=== PATIENT | male | born 1955 | race African-American/Black ===

== ENCOUNTER 2023-08-20 08:20 | Day surgery (SDC) | payer OTHER ==
[2023-08-20] MEDS ORDERED: Ringers Lactate 1,000 ML IV ONE (08:47)
[2023-08-20] MEDS ORDERED: METHYLPREDNISOLONE 125 MG INJ ONE ×2 (09:07→10:43)
[2023-08-20] MEDS ORDERED: FENTANYL CITR 100 MCG/2 ML ONE (10:24)
[2023-08-20] MEDS ORDERED: ROCURONIUM 50 MG/5 ML VIAL IV ONE (10:24)
[2023-08-20] MEDS ORDERED: MIDAZOLAM HCL 2 MG/2 ML INJ ONE (10:24)
[2023-08-20] MEDS ORDERED: propofoL 200 MG/20 ML VIAL IV ONE (10:24)
[2023-08-20] MEDS ORDERED: dexAMETHasone 10 MG/ML VIAL ONE (10:24)
[2023-08-20] MEDS ORDERED: LIDOCAINE 2% MPF 5 ML VIAL ONE (10:25)
[2023-08-20] MEDS ORDERED: LIDOCAINE HCL/EPINEPHRINE 20 ML MDV ONE (10:35)
[2023-08-20] MEDS ORDERED: OXYMETAZOLINE HCL 0.05% 15ML NAS ONE (10:35)
[2023-08-20] MEDS ORDERED: EPINEPHRINE/PF 1 MG/ML AMP ONE (10:35)
[2023-08-20] MEDS ORDERED: NEOSTIGMINE 1 MG/ML -10 ML VIAL ONE (11:13)
[2023-08-20] MEDS ORDERED: GLYCOPYRROLATE 0.2 MG/ML SYR ONE (11:13)
[2023-08-20 11:17] VITALS: O2SAT 100
--- NOTE | 2023-08-20 11:24 | P.OP ---
Retail Commission Sales Associate: NONE,NONE Preoperative diagnosis: Neoplasm uncertain behavior, larynx. Dysphonia. Tobacco use. Postoperative diagnosis: Same. 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 An exam under anesthesia is performed. The patient has dental avulsions with retained roots of the maxilla with grossly carious and loose teeth of the mandible. The lips, floor of mouth, oral tongue and hard palate are unremarkable. The soft palate and posterior pharyngeal wall is unremarkable on inspection. There are no mucosal lesions in the retromolar trigone. Deep palpation of the base of tongue and tonsillar fossa's revealed no palpable masses or areas of friability. The upper gingiva are protected with a gauze sponge. The [facility] laryngoscope is fitted with a 15 degree telescope and a direct laryngoscopy is performed. Direct visualization of the tonsillar fossa, posterior pharyngeal wall, base of tongue, epiglottis and right and left piriform sinuses all reveal no mucosal lesion under magnification with the telescope. The laryngoscope was then positioned for visualization of the glottis. The false vocal folds appear unremarkable. The left true vocal fold appears smooth with no significant lesions. The right vocal fold demonstrated a central area of moderate ulceration with moderate exophytic appearing tumor around the ulcer and extending anteriorly. There was no obvious involvement of the left anterior vocal fold. There is no obvious involvement of the subglottis. A cup forceps is used to obtain a biopsy from the ulcerated area of the right vocal fold as well as the more bulky exophytic area anteriorly. The specimens are sent to pathology for permanent section only. An epinephrine soaked pledget is applied to the biopsy site for several minutes to allow for vasoconstriction and aid in hemostasis. After removal, the area appears hemostatic with no clinical concern for significant airway obstruction. The laryngoscope was carefully removed and the patient was returned to care of anesthesia for awakening extubation in the operating room which proceeded without difficulty. Due to the clinical findings, I spoke with the patient's loved one who indicated desire to complete treatment locally as there is an anticipated need for radiation therapy pending staging and receipt of biopsy results. We will plan to refer to radiation oncology and instructed the patient to proceed with dental evaluation and extractions
[2023-08-20] MEDS ORDERED: Phenylephrine HCl 10 MG/ML 1 ML VIAL ONE ×2 (11:25→11:26)
[2023-08-20 11:29] VITALS: BP 136/77; TEMP 97.1
--- NOTE | 2023-08-21 14:14 | EKG ---
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
== END 2023-08-20 12:15 | disposition home or self-care (01) ==
LOC: OR 08:20
PROVIDERS: ATTEND Otolaryngology
PROC: 0CBT8ZX Excision of Right Vocal Cord, Via Natural or Artificial Opening Endoscopic, Diagnostic (ICD-10-PCS; principal; 2023-08-20 09:30)
DX: C32.0 Malignant neoplasm of glottis (principal); R49.0 Dysphonia; Z72.0 Tobacco use
CPT/HCPCS: 93005; 88305; 31536; J2704; J2710; J0171; J2371 ×2; J2001; J2250; J3010; J1100; J2930; J7120